=== PATIENT | female | born 1960 | race Caucasian/White ===

== ENCOUNTER → 2018-11-26 | Outpatient (REF) | payer BC ==
[~2018-11-26] MED LIST: KEFLEX500 MG PO
== END | disposition home or self-care (01) | DRG 951 ==
LOC: DI 10:00
PROVIDERS: ATTEND Physician Assistant
DX: Z87.891 Personal history of nicotine dependence (principal)

== ENCOUNTER 2021-05-21 21:00 | Emergency (ER) | payer BC ==
[~2021-05-21] VITALS: Ht 162.6 cm; Wt 69.0 kg
[2021-05-22 02:00] VITALS: BP 118/65
== END 2021-05-22 02:55 | disposition home or self-care (01) | DRG 921 ==
LOC: ED 21:00
PROC: 0HQJXZZ Repair Left Upper Leg Skin, External Approach (ICD-10-PCS; principal; 2021-05-22)
DX: L76.22 Postprocedural hemorrhage of skin and subcutaneous tissue following other procedure (principal); Y83.8 Other surgical procedures as the cause of abnormal reaction of the patient, or of later complication, without mention of misadventure at the time of the procedure